=== PATIENT | female | born 1940 | race Caucasian/White ===

== ENCOUNTER 2022-10-22 18:44 | Emergency (ER) | payer MEDICARE, SELFPAY ==
--- NOTE | 2022-10-22 18:58 | ED.SKABFB ---
HPI - Skin/Abscess/Foreign Bdy General Chief complaint: Skin/Abscess/Foreign Body Stated complaint: wasp sting Time Seen by Provider: 10/22/22 19:01 Source: patient Mode of arrival: ambulatory Limitations: no limitations History of Present Illness HPI narrative: 82 y/o female presented for c/o left forearm redness and swelling over the past 6 days after insect sting. States it slowly worsened, now red and warm. Itching is at its worst today. Denies pain, drainage, n/v/d/f/c. Used hydrocortisone cream today without much relief. Related Data Home Medications Medication Instructions Recorded Confirmed atorvastatin 20 mg tablet 20 mg PO DAILY 10/22/22 10/22/22 fluorouracil 5 % topical cream 1 applic topical DIRECTED 10/22/22 10/22/22 losartan 50 mg-hydrochlorothiazide 1 tablet PO DAILY 10/22/22 10/22/22 12.5 mg tablet Allergies Allergy/AdvReac Type Severity Reaction Status Date / Time No Known Allergies Allergy Verified 10/22/22 19:10 Review of Systems Review of Systems: CONSTITUTIONAL: Denies body aches, fever, chills, or sweats. EYES: Denies visual changes, redness, or discharge. ENT: Denies rhinorrhea, congestion CARDIOVASCULAR: Denies chest pain, palpitations, or edema. RESPIRATORY: Denies cough or dyspnea. GASTROINTESTINAL: Denies abdominal pain, nausea, vomiting, or diarrhea. SKIN: per HPI MUSCULOSKELETAL: Denies back pain, joint pain, or myalgia. NEUROLOGIC: Denies headache, numbness, tingling, or weakness. FOR[facility]LY [facility] Past Medical History Medical History (Updated 10/22/22 @ 19:24 by Ileana Fitzpatrick APRN) Hypertension Comments At time of signature, I have reviewed and agree with nursing past medical, surgical, social and family history unless otherwise noted. Please see nursing chart for further information. There is no relevant family history pertinent to the presenting complaint Exam Narrative: GENERAL: Well-appearing HEAD: Normocephalic, atraumatic. EYES: conjunctivae clear, and EOMI. ENT: Mucous membranes moist. Oropharynx without edema, erythema or lesions. NECK: Supple. No lymphadenopathy CHEST: Clear to auscultation. HEART: Regular rate and rhythm. SKIN: Warm, dry, intact. Distal left forearm with approx 6x11cm erythematous, raised warm area c/w cellulitis. Full ROM to hand. Cap refill <3seconds. Pulses 2+. NEURO: Alert and oriented x3. Course Course Emergency Course: Patient is aware of diagnosis, understands and agrees to treatment plan. Anticipatory guidance given. Patient agrees to follow-up as directed and is aware of reasons to seek care at the emergency department. Portions of this record may have been created with voice recognition software Level of Care: Express Care Visit Vital Signs Vital signs: Reviewed MDM - Skin/Abscess/Foreign Bdy MDM Narrative Medical decision making narrative: Discussed physical exam findings. Reviewed Rxs. Advised supportive measures and signs/symptoms to go to the ER. Pt is appropriate for outpt treatment and f/u. Instructed patient to go to nearest ER immediately for any worsening symptoms including but not limited to: fever, spreading redness, pain, chest pain, trouble breathing, or any symptoms concerning to the patient. Differential Diagnosis Differential diagnosis: Likely abscess of skin or subcutaneous tissue, urticaria, herpes zoster, cellulitis and contact dermatitis Discharge Plan Discharge Clinical Impression: Cellulitis Patient Disposition: Home, Self-Care Condition: Stable Instructions: Antibiotic Form, Cellulitis (ED) Additional Instructions: Prescriptions: Take steroid (prednisone) and antibiotic (cephalexin) as directed. Over the counter: Benadryl every 8 hours as needed, hydrocortisone cream as needed for itching Cool compresses to the sites of itching, avoid hot water. Avoid scratching to reduce the risk of infection Follow up with your primary care provider as needed in 1 week Go to the ER
[2022-10-22 19:00] VITALS: BP 141/69; PULSE 72; RESP 16; TEMP 36.4; O2SAT 96
== END 2022-10-22 19:17 | disposition home or self-care (01) ==
PROVIDERS: Emergency Provider Nurse Practitioner Family
DX: L03.114 Cellulitis of left upper limb (principal); I10 Essential (primary) hypertension
CPT/HCPCS: 99203; G0463